=== PATIENT | female | born 1995 | race Caucasian/White ===

== ENCOUNTER 2025-02-14 10:45 | Outpatient (OUT) | payer OTHER, SELFPAY ==
--- OUTSIDE RECORDS SUMMARY | 2025-02-14 10:52 | XMS_ITS | Encounter Summary ---
Author Organization [facility] Address [address] [place] [address] Care Team Providers Care Operations Administrator Name Role Phone Karan Starr MD Unavailable [phone] Encounter Details Date Type Department Care Team (Late st Contact Info) Description 04/09/2021 Abstract PATIENT ACUITY SCORE Social History Tobacco Use Types Packs/Day Years Used Date Smoking Tobacco: Never Smokeless Tobacco: Never Comments Unknown Sex and Gender Information Value Date Recorded Sex Assigned at Not on file Legal Sex Female 7:13 PM EDT Gender Identity Not on file Sexual Orientation Not on file documented as of this encounter Plan of Treatment Not on file documented as of this encounter Visit Diagnoses Not on filedocumented in this encounter Care Teams Operations Administrator Relationship Specialty Start Date End Date Karan Starr MD [address] [place], [place] [id number] Physician Orthopaedics 03/07/20 documented as of this encounter
--- OUTSIDE RECORDS SUMMARY | 2025-02-14 10:52 | XMS_ITS | Clinical Summary ---
Author Organization [facility] Address [address] [place] [address] Care Team Providers Care Heel Molder Name Role Phone Jose Gonzalez MD Primary Care Provider [phone] Gina Gonzales DO Unavailable [phone] Allergies Active Allergy Reactions Criticality Noted Date Comments Amoxicillin-Pot Clavulanate Other 03/18/20 23 Metoclopramide Anxiety,Other Low 01/26/2019 Other Reaction(s): change in mental state, Confusion, Other: See Comments Altered mental status Medications escitalopram (Lexapro) 10 MG tablet 15 mg. Active hydrOXYzine pamoate (Vistaril) 25 MG capsule Active Cetirizine HCl (ZyrTEC ALLERGY) 10 MG capsule Take by mouth. Active loratadine (Claritin) 10 MG tablet Active Melatonin 5 MG chewable tablet Acti ve omeprazole (PriLOSEC) [address] capsule 1 (one) time each day at the same time. Active Family History Medical History Relation Name Comments Diabetes Father Heart disease Father Diabetes Mother Endometriosis Mother Heart disease Mother Endometriosis Sister Relation Name Status Comments Brother 1 Father Mother Sister 2 Social History Tobacco Use Types Packs/Day Years Used Date Smoking Tobacco: Never Tobacco Cessation:Counseling Given: Not Answered Alcohol Use Standard Drinks/Week Comments Yes 0 (1 standard drink = 0.6 oz pure alcohol) 1-2 drinks less than monthly in the past year, Caffeine intake: 2-3 cups per day pop Comments Unknown Sex and Gender Information Value Date Recorded Sex Assigned at Not on file Legal Sex Female 6:46 PM EDT Gender Identity Not on file Sexual Orientation Not on file Last Filed Vital Signs Vital Sign Reading Time Taken Comments Blood Pressure 132/78 03/18/2023 10:16 AM EDT Pulse - - Temperature - - Respiratory Rate - - Oxygen Saturation - - Inhaled Oxygen Concentration - - Weight 103 kg (226 lb) 03/18/2023 10:16 AM EDT Height 162.6 cm (5' 4 ) 03/18/2023 10:16 AM EDT Body Mass Index 38.79 03/18/2023 10:16 AM EDT Plan of Treatment Health Maintenance Due Date Last Done Comments Pap Smear 2015 Influenza Vaccine (#1) 2025 , 08/09/2021, 03/18/2018, Additional history exists Cervical Cancer Screening 08/10/2025 HPV/Cotest 08/10/2025 08/10/2020, 08/06/2019 Procedures Procedure Name Priority Date/Time Associated Diagnosis Comments THINPREP TIS PAP REFLEX HPV MRNA E6/E7 (68157) Routine 08/10/2020 from Last 3 Months or Most Recently Relevant to Health Maintenance Results * THINPREP TIS PAP REFLEX HPV MRNA E6/E7 (57136) (08/10/2020) CLINICAL INFORMATION: None given [facility] LMP: 08/10/2020 [facility] PRE[facility]. PAP: 08/06/2019 [facility] BX: NONE GIVEN [facility] SOURCE: Cervix, Endocervix [facility] STATEMENT OF ADEQUACY: SEE COMMENT [facility] Comment: Satisfactory for evaluation. Endocervical/transformation zone component present. INTERPRETATION /RESULT: Negative for intraepithelial lesion or malignancy. [facility] COMMENT: This Pap test has been evaluated with computer assisted technology. [facility] CYTOTECHNOLOGI ST: SEE COMMENT [facility] Comment: DionneJK, CT(ASCP) CT screening location: [place] [address]. COMMENT SEE COMMENT [facility] Comment: EXPLANATORY NOTE: The Pap is a screening test for cervical cancer. It is not a diagnostic test and is subject to false negative and false positive results. It is most reliable when a satisfactory sample, regularly obtained, is submitted with relevant clinical findings and history, and when the Pap result is evaluated along with historic and current clinical information. 08/10/2020 us Gina Gonzales DO [facility] Final Resul t [facility] from Last 3 Months or Most Recently Relevant to Health Maintenance Insurance [employer] Care Teams Heel Molder Relationship Specialty Start Date End Date Jose Gonzalez MD [address] [place] [address] PCP - General Family Medicine 03/06/23 Gina Gonzales DO [address] [place] [address] Referring Physician Obstetrics and Gynecology 03/06/23
--- OUTSIDE RECORDS SUMMARY | 2025-02-14 10:52 | XMS_ITS | Clinical Summary ---
Author Organization [facility] Address [address] [place] [address] Care Team Providers Care Electronic Train Control Technician Name Role Phone Karan Starr MD Unavailable [phone] Source Comments The following information is NOT included in Care Everywhere downloads:Psychiatric notes, ECG results, Cardiac Rehab notes, Pulmonary Function notes, data from SmartForms (includes but not limited toPregnancy data,audiograms, eye exams, pre-surgical evaluation notes, well-child exam data).[facility] Allergies Active Allergy Reactions Criticality Noted Date Comments Metoclopramide Confusion 01/26/2019 Medications escitalopram (LEXAPRO) 10 MG tablet TAKE 1 AND 1/2 TABLETS BY MOUTH ONCE DAILY 5 01/21/2019 Active Cetirizine HCl (ZYRTEC ORAL) Take by mouth. Active OMEPRAZOLE ORAL Take by mouth. Active Active Problems Problem Noted Date Diagnosed Date Closed displaced fracture of shaft of right clav icle 01/27/2019 Immunizations Immunization Administration Dates Next Due Influenza, Injectable, MDCK, Quadrivalent, Preservative Free (MXP=358) 08/09/2021,03/18/2018 Influenza, injectable, quadr ivalent, preservative (LFH=094) 03/12/2017 Social History Tobacco Use Types Packs/Day Years Used Date Smoking Tobacco: Never Smokeless Tobacco: Never Comments Unknown Sex and Gender Information Value Date Recorded Sex Assigned at Not on file Legal Sex Female 7:13 PM EDT Gender Identity Not on file Sexual Orientation Not on file Last Filed Vital Signs Vital Sign Reading Time Taken Comments Blood Pressure 122/69 01/26/2019 9:30 PM EDT Pulse 93 01/26/2019 9:30 PM EDT Temperature 36.7 C (98.1 F) 01/26/2019 7:31 PM EDT Respiratory Rate 18 02/02/2019 2:17 PM EDT Oxygen Saturation 100% 01/26/2019 9:30 PM EDT Inhaled Oxygen Concentration - - Weight 97.1 kg (214 lb) 02/02/2019 2:17 PM EDT Height 162.6 cm (5' 4 ) 02/02/2019 2:17 PM EDT Body Mass Index 36.73 02/02/2019 2:17 PM EDT Plan of Treatment Health Maintenance Due Date Last Done Comments Hepatitis C Antibody 2012 Tdap Booster 2012 Hepatitis A (HAV) Vaccine (optional start 19+ years) 2013 Hepatitis B (HBV) Vaccine (1 of 3 - 19+ 3-dose series) 2013 Pap Smear 2015 HPV Vaccine (optional start 27-45 years) 2021 COVID-19 Vaccine (2 - 2024- season) 2025 08/09/2021 Influenza Vaccine (#1) 2025 2, 03/18/2018, 03/12/2017 Shingles (RZV) Vaccine (1 of 2) 2044 HIV Test Completed 01/26/2019 Mammography Discontinued Pneumococcal Vaccine(s) Aged Out No l onger eligible based on patient's age to complete this topic Procedures Procedure Name Priority Date/Time Associated Diagnosis Comments HIV-1 RNA PCR, QUANTITATIVE STAT 01/26/2019 7:23 PM EDT from Last 3 Months or Most Recently Relevant to Health Maintenance Results * HIV-1 RNA PCR, QUANTITATIVE (01/26/2019 7:23 PM EDT) HIV Viral Load Not Detected 01/28/2019 3:12 PM EDT [facility] Blood BLOOD SPECIMEN / Unknown 01/26/2019 7:23 PM EDT 01/26/2019 7:39 PM EDT Narrative [facility] - 01/28/2019 3:12 PM EDT This test is an in vitro nucleic acid amplification test (PCR method)(HAFSA AmpliPrep/ HAFSA TaqMan HIV-1 Test, version 2.0) that is intended to be used in conjunction with clinical presentation and other laboratory markers of disease progression for the clinical management of HIV-1 infected patients. It is not intended for use as a screening test for HIV-1 in blood or blood products or as a diagnostic test to to confirm the presence of HIV-1 infection. The analytical range for this test is from 20 copies/mL to 10,000,000 copies/mL. One copy of HIV-1 RNA is equivalent to 1.7 +/- 0.1 International Units (IU) based on the WHO 1st International Standard for HIV-1 RNA for Nucleic Acid Based Techniques (TATO)(NIBSC 97/656). HIV Information: [place] Rev. code 3701.243(E): This information has been disclosed to you from confidential records protected from disclosure by state law. You shall make no further disclosure of this information without the specific, written, and informed release of the individual to whom it pertains, or as otherwise permitted by state law. A general authorization for the release of medical or other information is not sufficient for the purpose of the release of HIV test results or diagnoses. This test is an in vitro nucleic acid amplification test (PCR method)(HAFSA AmpliPrep/ HAFSA TaqMan HIV-1 Test, version 2.0) that is intended to be used in conjunction with clinical presentation and other laboratory markers of disease progression for the clinical management of HIV-1 infected patients. It is not intended for use as a screening test for HIV-1 in blood or blood products or as a diagnostic test to to confirm the presence of HIV-1 infection. The analytical range for this test is from 20 copies/mL to 10,000,000 copies/mL. One copy of HIV-1 RNA is equivalent to 1.7 +/- 0.1 International Units (IU) based on the WHO 1st International Standard for HIV-1 RNA for Nucleic Acid Based Techniques (TATO)(NIBSC 97/656). HIV Information: [place] Rev. code 3701.243(E): This information has been disclosed to you from confidential records protected from disclosure by state law. You shall make no further disclosure of this information without the specific, written, and informed release of the individual to whom it pertains, or as otherwise permitted by state law. A general authorization for the release of medical or other information is not sufficient for the purpose of the release of HIV test results or diagnoses. David Isaacs MD [facility]HEP/SYPH TESTING Final Result [facility] [address] [place] [address] from Last 3 Months or Most Recently Relevant to Health Maintenance Insurance [employer] - HMO/PPO/POS [employer] - HMO/PPO/POS Care Teams Electronic Train Control Technician Relationship Specialty Start Date End Date Karan Starr MD [address] [place] [address] Physician Orthopaedics 03/07/20
--- OUTSIDE RECORDS SUMMARY | 2025-02-14 10:52 | XMS_ITS | Clinical Summary ---
Author Organization [facility] Address [address] [place], [place] [address] Care Team Providers Care Dressage Instructor Name Role Phone Gina Gonzales DO Unavailable [phone] Allergies Active Allergy Reactions Criticality Noted Date Comments Metoclopramide Other: See Comments 05/17/2021 Altered mental status Medications escitalopram oxalate (LEXAPRO ORAL) Take 15 mg by mouth. Active Cetirizine (ZYRTEC) 10 mg cap Take by mouth. Activ e melatonin 10 mg tab Take by mouth. Activ e omeprazole magnesium (PRILOSEC ORAL) Take 40 mg by mouth. Active medroxyPROGESTE [place] (PROVERA) 10 mg tablet Take 1 tablet by mouth once daily. For 10 days if no period or positive by cycle day 35. 10 tablet 3 1 Active metFORMIN (GLUCOPHAGE) 500 mg tablet TAKE 1 TABLET BY MOUTH EVERY DAY WITH BREAKFAST 30 tablet 2 Active ergocalciferol, vitamin D2, (VITAMIN D2 ORAL) Take by mouth. Activ e inositol powder Take by mouth. Active letrozole (FEMARA) 2.5 mg tablet Take 2 tablets by mouth as directed for 5 days. Start on cycle day 3 (where cycle day 1 is the first day of full flow). Continue until day 7 10 tablet 5 2 Active Social History Tobacco Use Types Packs/Day Years Used Date Smoking Tobacco: Never Smokeless Tobacco: Never Alcohol Use Standard Drinks/Week Comments Yes 0 (1 standard drink = 0.6 oz pur e alcohol) socially Area Deprivation Index Answer Date Francisco rded National Score (1-100), lower number is lower ri sk 70 06/14/2022 State Score (1-10), lower number is lower risk N ot on file 06/14/2022 Data from: https://www.neighborhoodatlas.[facility].edu/. Last address used for calculation [address] 06/14/2022 Comments No Sex and Gender Information Value Date Recorded Sex Assigned at Not on file Legal Sex Female 8:09 AM EST Gender Identity Not on file Sexual Orientation Not on file Last Filed Vital Signs Vital Sign Reading Time Taken Comments Blood Pressure - - Pulse - - Temperature - - Respiratory Rate - - Oxygen Saturation - - Inhaled Oxygen Concentration - - Weight 99.8 kg (220 lb) 11/15/2021 12:53 PM EDT Height 162.6 cm (5' 4 ) 11/15/2021 12:53 PM EDT Body Mass Index 37.76 11/15/2021 12:53 PM EDT Plan of Treatment Health Maintenance Due Date Last Done Comments Anxiety Screening 2012 Depression Screening 2012 HIV Screening 2012 Hepatitis C Screening 2012 DTaP,Tdap,Td Vaccine (1 - Tdap) 2013 Hepatitis B Vaccine (1 of 3 - 19+ 3-dose series) 2013 Cervical Cancer Screening 2015 HPV Vaccine (1 - 3-dose SCDM series) 2021 Influenza Vaccine (#1) 2025 2, 03/18/2018, 03/12/2017 Care Teams Dressage Instructor Relationship Specialty Start Date End Date Gina Gonzales DO [address] [place] [address] Referring Obstetrics 04/24/21
--- OUTSIDE RECORDS SUMMARY | 2025-02-14 10:52 | XMS_ITS | Encounter Summary ---
Author Organization [facility] Address [address] [place] [address] Care Team Providers Care Petroleum Analyst Name Role Phone Karan Starr MD Unavailable [phone] Encounter Details Date Type Department Care Team (Late st Contact Info) Description 06/01/2020 Abstract PATIENT ACUITY SCORE Social History Tobacco [...] on filedocumented in this encounter Care Teams Petroleum Analyst Relationship Specialty Start Date End Date Karan Starr MD [address] [place], [place] [id number] Physician Orthopaedics 03/07/20 documented as of this encounter
[2025-02-14 12:11] LABS: Cholesterol 234 mg/dL (<=200); HDL Cholesterol 39 mg/dL (40-60); Triglycerides 167 mg/dL (<=150); VLDL CHOLESTEROL 33.4 mg/dL
== END 2025-02-14 10:46 | disposition home or self-care (01) ==
LOC: LAB 10:49
PROVIDERS: PCP Family Medicine; Visit Provider Family Medicine
DX: E78.5 Hyperlipidemia, unspecified (principal)
CPT/HCPCS: 36415; 80061